=== PATIENT | male | born 1985 | race Caucasian/White ===

== ENCOUNTER 2025-05-04 15:19 | Emergency (ER) | payer OTHER ==
[~2025-05-04] VITALS: Ht 182.9 cm; Wt 90.7 kg
[2025-05-04 15:23] VITALS: BP 131/67
[2025-05-04 16:21] LABS: CREATININE 0.7 mg/dL (0.6-1.3); SODIUM SERUM 134.0 mmol/L (136-145); UREA NITROGEN, BLOOD 14.0 mg/dL (7-18)
[2025-05-04 16:23] LABS: PLATELET COUNT (AUTO) 189 K/uL (152-348); RED BLOOD CELL COUNT(AUTO) 4.11 MIL/uL (4.06-5.63); RED CELL DISTRIBUTION WIDTH 15.3 % (12.1-16.2); WHITE BLOOD COUNT (AUTO) 8.2 K/uL (3.6-10.2)
[2025-05-04 16:27] LABS: ASPARTATE AMINOTRANSFERASE 42.0 U/L (15-37); TOTAL PROTEIN, SERUM 7.6 g/dL (6.4-8.2)
[2025-05-04] MEDS ORDERED: SULFAMETH/TRIMETH 800/160 MG TABLET ONE (17:04)
[2025-05-04] MEDS: SULFAMETH/TRIMETH 800/160 MG TABLET PO ONE (17:05)
[2025-05-04] MEDS ORDERED: SULF1TAB48 PO (17:11)
[2025-05-04] MEDS ORDERED: CEPH750C9 PO (17:11)
[2025-05-04 17:24] VITALS: BP 127/72; O2SAT 100
== END 2025-05-04 17:20 | disposition home or self-care (01) ==
LOC: ER 15:36
DX: L03.116 Cellulitis of left lower limb (principal); F11.20 Opioid dependence, uncomplicated; Z60.2 Problems related to living alone
CPT/HCPCS: 36415; 85025; 85730; 86140; A4606; A4663